=== PATIENT | female | born 1970 | race Caucasian/White ===

== ENCOUNTER 2024-11-04 12:07 | Observation (INO) | payer MEDICARE, MEDICAID, SELFPAY ==
[2024-11-04] VITALS (14 sets, daily range): BP systolic 122–162; BP diastolic 69–92; PULSE 61–84; RESP 15–19; TEMP 36.4–36.5; O2SAT 96–100
[2024-11-04 12:48] LABS: Bilirubin Negative (Negative); Blood Negative (Negative); Clarity Clear (Clear); Glucose Negative (Negative); Ketones Negative (Negative); Leukocyte Esterase Negative (Negative); Nitrite Negative (Negative); Urobilinogen 0.2 mg/dL (Up to 0.2)
--- NOTE | 2024-11-04 12:52 | ED.GENADUL_ITS ---
Discharge Plan Disposition Patient Disposition: Admit to [facility] Discharge Details Chief Complaint: FlankPain Clinical Impression: Hypomagnesemia Primary Care Provider: Jenny Winston ED Provider: Ann Marie Marie Home Meds and New Rx's Prescriptions: No Action Repatha SureClick 140 mg/mL pen injector 140 mg subcut Q2W Ubrelvy 100 mg tablet 100 mg PO ONCE PRN Rx Instructions: take 1 tab q2hr x2 in 24 hr as needed for migraines baclofen 10 mg granules in packet 10 mg PO TID escitalopram oxalate [Lexapro] 20 mg tablet 20 mg PO DAILY gabapentin 300 mg tablet extended release 24 hr 600 mg PO BID dexlansoprazole 60 mg capsule,biphase delayed releas 60 mg PO DAILY irbesartan 300 mg tablet 300 mg PO DAILY epinephrine [Auvi-Q] 0.3 mg/0.3 mL auto-injector 0.3 ml subcut Q5-15M PRN Rx Instructions: do not exceed 2 doses per episode furosemide 40 mg tablet 40 mg PO DAILY Trulance 3 mg tablet 3 mg PO DAILY chlorthalidone 25 mg tablet 25 mg PO DAILY hydroxychloroquine 200 mg tablet 200 mg PO DAILY potassium 20 mg tablet,chewable 20 mg PO DAILY levothyroxine [Euthyrox] 112 mcg tablet 112 mcg PO DAILY aspirin [Adult Aspirin Regimen] 81 mg tablet,delayed release (DR/EC) 81 mg PO DAILY HPI General Date/Time Provider Initiated Documentation: 11/04/24 12:15 . HPI Narrative: Francesca is a 54-year-old female who presents to the emergency department today for evaluation of left flank pain, urinary incontinence/frequency, and suprapubic/left-sided abdominal fullness x 4 days. Since May 2024, she has had recurrent UTIs and mobility difficulties. She experienced fecal incontinence and dribbling of her urine on Thursday, attributed to her back condition (says that she has had similar episodes with UTIs in the past). On Thursday, she had dehydration symptoms, dry lips, and pressure during urination, suspecting a bladder or kidney infection. She reports internal heat sensation but no fever, dizziness, congestion, sore throat, cough, nausea, or vomiting. She has bladder discomfort, a history of abdominal surgeries (C- sections, cholecystectomy, hysterectomy), but retains her appendix. She has regular bowel movements, no abnormal vaginal bleeding, and feels dehydrated despite adequate intake, with frequent nocturnal urination. No new genital numbness. History of UTIs associated with incontinence, hospitalized for 8 days at [facility] for UTI, treated with antibiotics for 6 days. Intermittent throbbing back pain, known kidney stone since 2015, not passed. No cardiac, pulmonary issues, or diabetes. Scheduled for caudal injection on Thursday, attended physical therapy this morning. History of 2 major back surgeries in 1999. 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 Related Data Home Medications ?Medication ?Instructions ?Recorded ?Confirmed aspirin 81 mg tablet,delayed 81 mg PO DAILY 11/04/24 11/04/24 release (Adult Aspirin Regimen) baclofen 10 mg oral granules in 10 mg PO TID 11/04/24 11/04/24 packet chlorthalidone 25 mg tablet 25 mg PO DAILY 11/04/24 11/04/24 dexlansoprazole 60 mg 60 mg PO DAILY 11/04/24 11/04/24 capsule,biphase delayed release epinephrine 0.3 mg/0.3 mL 0.3 ml subcut Q5-15M PRN 11/04/24 11/04/24 injection, auto-injector (Auvi-Q) escitalopram oxalate 20 mg tablet 20 mg PO DAILY 11/04/24 11/04/24 (Lexapro) evolocumab 140 mg/mL subcutaneous 140 mg subcut Q2W 11/04/24 11/04/24 pen injector (Repatha SureClick) furosemide 40 mg tablet 40 mg PO DAILY 11/04/24 11/04/24 gabapentin 300 mg tablet,extended 600 mg PO BID 11/04/24 11/04/24 release 24 hr hydroxychloroquine 200 mg tablet 200 mg PO DAILY 11/04/24 11/04/24 irbesartan 300 mg tablet 300 mg PO DAILY 11/04/24 11/04/24 levothyroxine 112 mcg tablet 112 mcg PO DAILY 11/04/24 11/04/24 (Euthyrox) plecanatide 3 mg tablet (Trulance) 3 mg PO DAILY 11/04/24 11/04/24 potassium 20 mg chewable tablet 20 mg PO DAILY 11/04/24 11/04/24 ubrogepant 100 mg tablet (Ubrelvy) 100 mg PO ONCE PRN 11/04/24 11/04/24 Allergies Allergy/AdvReac Type Severity Reaction Status Date / Time nitrofurantoin Allergy Severe Anaphylaxis Verified 11/04/24 12:23 Tetracyclines Allergy Severe Anaphylaxis Verified 11/04/24 12:23 amoxicillin Allergy Mild Hives Verified 11/04/24 12:23 atorvastatin Allergy Mild rash Verified 11/04/24 12:23 azithromycin Allergy Mild hives Verified 11/04/24 12:23 morphine Allergy Mild Hives Verified 11/04/24 12:23 sulfamethoxazole (From Allergy Mild Hives Verified 11/04/24 12:23 Bactrim) trimethoprim (From Bactrim) Allergy Mild Hives Verified 11/04/24 12:23 General Stated Complaint: FlankPain LINA: 3 Exam Narrative Exam Narrative: General Appearance: Normal. Patient is alert and oriented, no acute distress. Easily conversational Vital signs: Within normal limits. No tachycardia, tachypnea, hypoxia, or fever noted. HEENT: Mucous membranes Cardiovascular: Normal heart sounds, regular rate and rhythm. Gastrointestinal: Abdomen soft, nondistended, nontender to palpation with normoactive bowel sounds. No CVA tenderness. Skin: Warm and dry, no rash. Psychiatric: Normal. Course Vital Signs Vital signs: Vital Signs Temperature 36.5 C 11/04/24 12:11 Pulse 84 11/04/24 12:11 Respiratory Rate 16 11/04/24 12:11 Blood Pressure 140/90 11/04/24 12:11 Pulse Oximetry 98 11/04/24 12:11 Temperature 36.5 C 11/04/24 12:13 Pulse 84 11/04/24 12:13 Respiratory Rate 16 11/04/24 12:13 Blood Pressure 140/90 11/04/24 12:13 Pulse Oximetry 98 11/04/24 12:13 Oxygen Delivery Method Room Air 11/04/24 12:13 Oxygen Flow Rate 0 11/04/24 12:13 Pain Level 3 11/04/24 12:41 Lab/Test Results Lab/Test Results: Laboratory Tests Range/Units 11/04/24 12:35 Urine Color (Yellow) Yellow Urine Clarity (Clear) Clear Urine pH (5-8) 6.0 Ur Specific Joice (1.005-1.025) 1.010 Urine Protein (Neg-Trace) mg/dL Negative Urine Ketones (Negative) mg/dL Negative Urine Blood (Negative) Negative Urine Nitrite (Negative) Negative Urine Bilirubin (Negative) Negative Urine Urobilinogen (Up to 0.2) mg/dL 0.2 Ur Leukocyte Esterase (Negative) Negative Urine Glucose (Negative) mg/dL Negative Medical Decision Making Initial Assessment: Francesca is a 54-year-old female presenting with flank pain, increased urinary frequency, bladder pressure, and episodes of fecal incontinence. She has a history of major back surgeries, UTIs, and hypertension managed with medication. Differential Diagnosis: UTI, renal calculus, pyelonephritis, dehydration, electrolyte imbalance. No recent trauma or other neurological deficits to suggest spinal etiology of symptoms. ED Course: - Blood work ordered - Abdominal imaging ordered - Urinalysis ordered - Urine sample collected I independently interpreted the following tests: Severe hypomagnesemia noted, 1.1. CBC, CMP, lipase reassuring. Only mild hypokalemia noted, potassium 3.3. UA not consistent with UTI. CT abdomen/pelvis performed, no acute abnormality noted, though 2 nonobstructive calculi noted in the left kidney, and none in the ureter. No hydronephrosis or hydroureter. L-spine reconstruction performed to rule out changes in spine that may be contributory, no obvious acute abnormalities noted. Overall abdominal workup reassuring, hypomagnesemia likely contributory to muscle weakness. Francesca does note that she has a history of hypomagnesemia that was treated at [facility], says this was on unknown etiology. She does report that she has been feeling foggy headed recently and having frequent muscle spasms as well. Clinical Impression: Severe hypomagnesemia; patient to be admitted for observation/cardiac monitoring/replenishment. Discussed case with Dr. Talavera, hospitalist, who is agreeable with plan of care. Patient is agreeable with plan to admit. Disposition: - Admit MDM Components Evaluation: - Number of Differential Diagnoses or Management Options: Possible renal calculus, UTI - Amount and Complexity of Data Reviewed: Blood work, abdominal imaging, urinalysis, physical examination - Risk of Complication and Morbidity or Mortality: Potential complications from untreated UTI and renal calculus, dehydration Patient consented to the use of ANA Imaging Data Radiologic Study: Radiologist's impression: Exam(s) CT ABDOMEN PELVIS W EXAM: CT ABDOMEN PELVIS W CLINICAL HISTORY: lower abd fullness, urinary freq. TECHNIQUE: Imaging Protocol: Axial computed tomography images with coronal and sagittal reformatted images were created and reviewed CONTRAST MATERIAL: Intravenous: Omnipaque-350 100cc Oral: None COMPARISON: No exams were available for comparison FINDINGS: VISUALIZED LUNG BASES: No nodules nor pleural effusions evident. Bilateral prepectoral saline breast implants are noted. ABDOMEN: There is no ascites. LIVER: Liver is slightly prominent and hypodense implying steatosis. There no discrete focal hepatic lesions. No dilated intrahepatic ducts. GALLBLADDER/BILIARY: The gallbladder is surgically absent. CBD is not dilated. PANCREAS: No evidence of pancreatic mass nor dilatation of the pancreatic duct. SPLEEN: Spleen is not enlarged. No obvious intrasplenic lesions. Splenic and portal veins are patent. ADRENALS: There are no significant adrenal masses. KIDNEYS:Right kidney unremarkable. There is a 6 mm calculus in the superior pole the left kidney and a smaller 3 millimeter calculus in the inferior pole calyx of the left kidney. No hydronephrosis nor hydroureter. There are no cy sts . No solid renal masses.. ABDOMINAL AORTA: Abdominal aorta is not enlarged. LYMPH NODES:There is no retroperitoneal nor paraaortic adenopathy. ABDOMINAL WALL: No evidence of significant anterior abdominal wall nor inguinal hernia. GI: There is no evidence of bowel obstruction, free air, nor abscess. PELVIS: GI: No evidence of appendicitis.No significant sigmoid diverticular disease. LYMPH NODES: There is no intrapelvic nor inguinal adenopathy. REPRODUCTIVE: Uterus is surgically absent. There are no abnormal adnexal masses and no free fluid in the pelvis. URINARY BLADDER: No calculi nor obvious masses evident OSSEOUS: No fractures and no significant osseous lesions. There is evidence of previous disc level surgery at L4-5 level. No listhesis. No significant osseou s lesions. IMPRESSION: 1. There are 2 nonobstructive calculi in left kidney, 1 in the upper pole and the other in the lower pole. There is no hydronephrosis nor hydroureter. No radiopaque calculi seen in the opposite-right kidney. No calculi seen in the urinary bladder lumen. 2. Hepatic steatosis. No discrete focal hepatic lesions. 3. Gallbladder surgically absent. The biliary tree is not dilated. 4. Previous hysterectomy. No abnormal adnexal masses nor free fluid. Quality:SDOH Health Related Social Needs: No Data to Display [facility] All Active Problems (Updated 05/30/25 @ 16:45 by Ann Marie Beaulieu) Hypomagnesemia (Acute) Social History Smoking/Tobacco Use Status: Never Smoking risk assessment performed?: Yes Alcohol Intake: never Do you feel safe at home: Yes Do you feel safe in your relationship?: Yes
[2024-11-04 13:14] LABS: Abs Immature Grans 0.03 10^3/uL (0.0-0.06); Absolute Basophil Count 0.05 10^3/uL (0.0-0.2); Absolute Eosinophil Count 0.22 10^3/uL (0.0-0.7); Absolute Lymphocyte Count 3.81 10^3/uL (1.2-3.4); Absolute Neutrophil Count 3.33 10^3/uL (1.2-6.7); Basophils % 0.6 %; Eosinophils % 2.7 %; HGB 12.3 g/dL (11.2-15.7); Immature Grans % 0.4 %; Lymphocytes % 46.2 %; MCH 28.9 pg (27.0-33.0); MCHC 34.2 % (32.0-36.0); MCV 85 fL (80-95); MPV 10.1 fL (8.0-11.0); Monocytes % 9.7 %; Neutrophils % 40.4 %; Platelet Count 216 10^3/uL (130-400); RBC 4.26 10^6/uL (3.93-5.22); RDW-SD 39.8 fL; WBC 8.24 10^3/uL (4.4-10.8)
[2024-11-04 13:28] LABS: Lipase 58 U/L (<78); Magnesium 1.1 mg/dL (1.8-2.4)
[2024-11-04 13:32] LABS: ALT 45 U/L (14-59); AST 26 U/L (15-37); Albumin 3.6 g/dL (3.4-5.0); Alkaline Phosphatase 89 U/L (46-116); Anion Gap 11.3 mmol/L (3-11); BUN 19 mg/dL (7-18); Bilirubin, Total 0.3 mg/dL (0.2-1.0); CO2 27.7 mmol/L (21.0-32.0); Calcium 9.2 mg/dL (8.5-10.1); Chloride 101 mmol/L (98-107); Estimated GFR 67.78 (mL/min/1.73m2); Glucose 123 mg/dL (74-106); Potassium 3.3 mmol/L (3.5-5.1); Sodium 140 mmol/L (136-145); Total Protein 7.2 g/dL (6.4-8.2)
[2024-11-04] MEDS: Normal Saline - Diluent 50 ML VIAL IJ (14:14)
[2024-11-04] MEDS: Omnipaque 350 MG/ML 100 ML BTL IJ (14:15)
--- NOTE | 2024-11-04 14:18 | DI.CT_ITS ---
Exam(s) CT ABDOMEN PELVIS W EXAM: CT ABDOMEN PELVIS W CLINICAL HISTORY: lower abd fullness, urinary freq. TECHNIQUE: Imaging Protocol: Axial computed tomography images with coronal and sagittal reformatted images were created and reviewed CONTRAST MATERIAL: Intravenous: Omnipaque-350 100cc Oral: None COMPARISON: No exams were available for comparison FINDINGS: VISUALIZED LUNG BASES: No nodules nor pleural effusions evident. Bilateral prepectoral saline breast implants are noted. ABDOMEN: There is no ascites. LIVER: Liver is slightly prominent and hypodense implying steatosis. There no discrete focal hepatic lesions. No dilated intrahepatic ducts. GALLBLADDER/BILIARY: The gallbladder is surgically absent. CBD is not dilated. PANCREAS: No evidence of pancreatic mass nor dilatation of the pancreatic duct. SPLEEN: Spleen is not enlarged. No obvious intrasplenic lesions. Splenic and portal veins are paten t. ADRENALS: There are no significant adrenal masses. KIDNEYS:Right kidney unremarkable. There is a 6 mm calculus in the superior pole the left kidney and a smaller 3 millimeter calculus in the inferior pole calyx of the left kidney. No hydronephrosis no r hydroureter. There are no cysts . No solid renal masses.. ABDOMINAL AORTA: Abdominal aorta is not enlarged. LYMPH NODES:There is no retroperitoneal nor paraaortic adenopathy. ABDOMINAL WALL: No evidence of significant anterior abdominal wall nor inguinal hernia. GI: There is no evidence of bowel obstruction, free air, nor abscess. PELVIS: GI: No evidence of appendicitis.No significant sigmoid diverticular disease. LYMPH NODES: There is no intrapelvic nor inguinal adenopathy. REPRODUCTIVE: Uterus is surgically absent. There are no abnormal adnexal masses and no free fluid in the pelvis. URINARY BLADDER: No calculi nor obvious masses evident OSSEOUS: No fractures and no significant osseous lesions. There is evidence of previous disc level s urgery at L4-5 level. No listhesis. No significant osseous lesions. IMPRESSION: 1. There are 2 nonobstructive calculi in left kidney, 1 in the upper pole and the other in the lower pole. There is no hydronephrosis nor hydroureter. No radiopaque calculi seen in the opposite-right kidney. No calculi seen in the urinary bladder lumen. 2. Hepatic steatosis. No discrete focal hepatic lesions. 3. Gallbladder surgically absent. The biliary tree is not dilated. 4. Previous hysterectomy. No abnormal adnexal masses nor free fluid. Report called by myself to ER provider 11/04/2024 at 2:30 p.m. RADIATION DOSE DELIVERED: 613.03mGy.cm Total DLP DATA REPOSITORY: All CT scans at this facility are submitted to the National Radiology Data Registry (NRDR) Dose Index Registry (DIR) with the [employer] ([employer]). RADIATION OPTIMIZATION: All CT scans at this facility use at least one of these dose optimization te chniques: automated exposure control; mA and/or kV adjustment per patient size (includes targeted exa ms where dose is matched to clinical indication); or iterative reconstruction.
[2024-11-04] MEDS: MAGNESIUM SULFATE 4 GM/100 ML BAG IV_INF ×2 (14:36→18:44)
[2024-11-04 14:57] LABS: Magnesium 1.3 mg/dL (1.8-2.4)
--- NOTE | 2024-11-04 14:58 | DI.CT_ITS ---
Exam(s) CT LUMBAR SPINE RECONS EXAM: CT LUMBAR SPINE RECONS CLINICAL HISTORY: incontinence. TECHNIQUE: Imaging Protocol: Axial computed tomography images with coronal and sagittal reformatted images were created and reviewed COMPARISON: CT CT ABDOMEN PELVIS W from 11/04/2024 FINDINGS: Bones: There are no fractures, listhesis, nor pars defects. There are no lytic osseous lesions evide nt. There is evidence of previous surgery at L4-5 level. There is intervertebral disc space plugs at thi s level and posterior partial laminectomies. See below. INDIVIDUAL LEVELS: T12-L1:No disc herniation nor canal stenosis. Facet joints unremarkable. No foraminal stenosis. L1-2: No disc herniation nor canal stenosis. Facet joints unremarkable. No foraminal stenosis. L2-3: No disc herniation nor canal stenosis. Facet joints unremarkable. No Foraminal stenosis L3-4: No disc herniation nor canal stenosis. Facet joints unremarkable. No foraminal stenosis. L4-5: There is advanced disc space narrowing and there are 2 parallel intervertebral disc space murtaza ce is which are AP orientated and with no evidence of abnormal retropulsion into the spinal canal. T here is nevertheless significant disc space narrowing at this level. Posteriorly there are partial l aminectomies. There is some annular bulging but no true central canal stenosis evident at this level . There does appear to be some bilateral foraminal stenosis, more prominent on the left side. There are moderate degenerative changes in the facet joints. L5-S1: Relatively preserved disc height. No disc herniation or central canal stenosis. Mild bilate ral foraminal stenosis. Mild degenerative changes in the facet joints. The visualized sacroiliac joints and sacrum appear unremarkable. PARASPINAL SOFT TISSUES: Visualized paraspinal tissues appear unremarkable. IMPRESSION: 1. Postoperative changes at L4-5 level as described above. There is no central canal stenosis at thi s level but there does appear to be some bilateral foraminal stenosis, more prominent on the left jarett e. 2. There is mild bilateral foraminal stenosis at the L5-S1 level. 3. No fractures nor listhesis. RADIATION DOSE DELIVERED: Total DLP DATA REPOSITORY: All CT scans at this facility are submitted to the National Radiology Data Registry (NRDR) Dose Index Registry (DIR) with the [employer] (ACR). RADIATION OPTIMIZATION: All CT scans at this facility use at least one of these dose optimization te chniques: automated exposure control; mA and/or kV adjustment per patient size (includes targeted exa ms where dose is matched to clinical indication); or iterative reconstruction.
--- NOTE | 2024-11-04 15:45 | RT.EKG_ITS ---
APPROVED REPORT Exam: Resting ECG Reason for Exam: [email or web address] Patient Location: E HR:62 bpm ECG Measurements Heart Rate 62 AXIS IA 161 P 34 QRSd 94 QRS 19 QT 442 T 30 QTc 447 Conclusion Sinus rhythm...normal P axis, V-rate 60- 99
--- NOTE | 2024-11-04 18:15 | W.PM.HP.N ---
Date of service: 11/04/24 Time of Service: 18:15 Assessment and Plan Assessment and plan (1) Hypomagnesemia: Status: Acute Assessment and plan: Given severe hypomagnesemia with increased weakness and multiple QTc prolonging agents with QTc currently long on the monitor, reasonable to admit to observation for cardiac monitoring while we replace the Mg. Given 4g and magnesium up to 1.3 [address] this. Will give another 4g and check in AM. Continue oral replacement. PPI likely contributing, but she will get symtpoms if we just stop this. (2) Chronic low back pain: Status: Chronic Assessment and plan: Complex history of low back pain with mulitple surgeries, seeing pain management. History of intermittent incontinence is concerning, but CT today reassuring, and this has come/gone in the past. This is not acute cauda equina COntinue chornic baclofen, lower dose of gabapentin she is taking. Can use opioids or ketoralac if severe. 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 Low mag contributing. Adding amiloride. (5) Hypertension: Status: Chronic Assessment and plan: BP above goal but she is in pain. K+ sparing diuretic might help this, try cuttling chlorthalidone and starting amilioride. (6) GERD (gastroesophageal reflux disease): Status: Chronic Assessment and plan: On chornic high dose PPI, continue. (7) Mixed connective tissue disease: Assessment and plan: on hydroxychloroquine, continue (8) DVT prophylaxis: Status: Acute Assessment and plan: enoxaparin History of Present Illness History of Present Illness Chief Complaint: weakness, flank pain Narrative: 54 yo F with history of ocular CVA with left vision loss, mixed connective tissue disease, IBS, chronic low back pain s/p L4-5 lamenectomy and fusion and sacroiliitis, HTN, BMI 38, nephrolithiasis, GERD on PPI, migraines, hypothyroidism, and chronic hypomagesemia who presented to the ED today with general malaise and four days of worsening of pain in her left flank on top of her chronic back pain. She had noticed more urinary dribbling, has had history of incontinence related to her back that has come and gone . 4 days prior to admission, she also had stool incontinence, but has has normal bowel control since then. Back pain is throbbing, left lower to mid back. She has a history of UTIs complicated by stones as above. In addition to her pain she feels generally weak when she tries to walk, but no focal weakness. In the ED she had CT LS spine that did show left foramenal stenosis on L4/5 and bilateral L5-S1 but no central canal stenosis. CT A/P showed non-obstructing stones on left but no other significant pathology and urine was bland. Her labs were significant for magnesium of 1.1. Her QTc on monitor is alarming at 480s. ED clinician offered admission for cardiac monitoring given severe hypomagnesemia and weakness. She has had chronic low mag in the past. Takes magnesium 500mg BID from [employer]. She hasn't changed medications recently, other than cutting her gabapentin to 1 tablet per day because it doesn't work great and makes her legs swelling worse. Review of Systems All systems reviewed & are unremarkable except as noted in HPI and below Constitutional Constitutional: Denies chills, Denies fever(s), Denies headache(s) and Reports weight gain (25 lbs in past 2 months, gabapentin?) Eyes Eyes: Reports loss of vision (left eye, chronic, no acute change) ENT Ears, Nose, Mouth, and Throat: Denies headache(s) Integumentary/Breasts Skin/Breast: Reports alopecia (diffuse on head) Neurologic Neurologic: Denies headache(s) and Reports loss of vision (left eye, chronic, no acute change) PFSH All Active Problems (Updated 11/04/24 @ 18:53 by Dinesh Talavera) DVT prophylaxis (Acute) GERD (gastroesophageal reflux disease) (Chronic) Hyperlipemia (Acute) 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 (Acute) Hypokalemia (Acute) Hypertension (Chronic) Chronic low back pain (Chronic) Hypomagnesemia (Acute) Medical History Depression Nephrolithiasis Migraine IBS (irritable bowel syndrome) Mixed connective tissue disease Obesity, Class II, BMI 35-39.9 Surgical History S/P hysterectomy S/P lumbar laminectomy S/P lumbar fusion Social History Smoking/Tobacco Use Status: Never Smoking risk assessment performed?: Yes Alcohol Intake: never Drug use: Never Housing: house Do you feel safe at home: Yes Do you feel safe in your relationship?: Yes Additional Social history: Lives with sister in [facility]. 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 Meds Allergies and Home Medications Allergies Allergy/AdvReac Type Severity Reaction Status Date / Time nitrofurantoin Allergy Severe Anaphylaxis Verified 11/04/24 12:23 Tetracyclines Allergy Severe Anaphylaxis Verified 11/04/24 12:23 amoxicillin Allergy Mild Hives Verified 11/04/24 12:23 atorvastatin Allergy Mild rash Verified 11/04/24 12:23 azithromycin Allergy Mild hives Verified 11/04/24 12:23 morphine Allergy Mild Hives Verified 11/04/24 12:23 sulfamethoxazole (From Allergy Mild Hives Verified 11/04/24 12:23 Bactrim) trimethoprim (From Bactrim) Allergy Mild Hives Verified 11/04/24 12:23 Home Medications ?Medication ?Instructions ?Recorded ?Confirmed ?Type aspirin 81 mg tablet,delayed 81 mg PO DAILY 11/04/24 11/04/24 History release (Adult Aspirin Regimen) baclofen 10 mg oral granules in 10 mg PO TID 11/04/24 11/04/24 History packet chlorthalidone 25 mg tablet 25 mg PO DAILY 11/04/24 11/04/24 History dexlansoprazole 60 mg 60 mg PO DAILY 11/04/24 11/04/24 History capsule,biphase delayed release epinephrine 0.3 mg/0.3 mL 0.3 ml subcut Q5-15M PRN 11/04/24 11/04/24 History injection, auto-injector (Auvi-Q) escitalopram oxalate 20 mg tablet 20 mg PO DAILY 11/04/24 11/04/24 History (Lexapro) evolocumab 140 mg/mL subcutaneous 140 mg subcut Q2W 11/04/24 11/04/24 History pen injector (Repatha SureClick) furosemide 40 mg tablet 40 mg PO DAILY 11/04/24 11/04/24 History gabapentin 300 mg tablet,extended 600 mg PO BID 11/04/24 11/04/24 History release 24 hr hydroxychloroquine 200 mg tablet 200 mg PO DAILY 11/04/24 11/04/24 History irbesartan 300 mg tablet 300 mg PO DAILY 11/04/24 11/04/24 History levothyroxine 112 mcg tablet 112 mcg PO DAILY 11/04/24 11/04/24 History (Euthyrox) plecanatide 3 mg tablet (Trulance) 3 mg PO DAILY 11/04/24 11/04/24 History potassium 20 mg chewable tablet 20 mg PO DAILY 11/04/24 11/04/24 History ubrogepant 100 mg tablet (Ubrelvy) 100 mg PO ONCE PRN 11/04/24 11/04/24 History Exam Narrative Exam Narrative: GEN: Alert and oriented x 4, pleasant and cooperative, gives linear history. No acute distress at rest lying in bed. HEENT: Head atraumatic. Conjunctiva clear, no icterus. PEERL, EOMI. no rhinorrhea. MMM, OP benign. Neck is supple with no masses or lymphadenopathy, trachea midline LUNGS: CTAB with normal effort CV: RRR with no murmurs, gallops, or rubs. ABD: active bowel sounds, soft, nontender and nondistended. No masses. EXT: no cyanosis, clubbing. trace LE edema. legs not tender MSK: No joint redness or swelling NEURO: CN 2-12 grossly intact. Normal movement of 4 extremities. DTRs 2-3+ francoise patella. Sensation intact to light touch francoise including saddle. Normal speech and coordination. No tremor SKIN: No rashes or open wounds. No patches of hair loss PSYCH: normal mood and affect. normal thought process Results Imaging CT scan - pelvis: report reviewed EKG: report reviewed and image reviewed Imaging Studies: CT A/P: . There are 2 nonobstructive calculi in left kidney, 1 in the upper pole and the other in the lower pole. There is no hydronephrosis nor hydroureter. No radiopaque calculi seen in the opposite-right kidney. No calculi seen in the urinary bladder lumen. 2. Hepatic steatosis. No discrete focal hepatic lesions. 3. Gallbladder surgically absent. The biliary tree is not dilated. 4. Previous hysterectomy. No abnormal adnexal masses nor free fluid. LS CT: Postoperative changes at L4-5 level as described above. There is no central canal stenosis at this level but there does appear to be some bilateral foraminal stenosis, more prominent on the left side. 2. There is mild bilateral foraminal stenosis at the L5-S1 level. 3. No fractures nor listhesis. Labs 11/04/24 13:08 11/04/24 13:08 Labs: Laboratory Results - last 24 hr 11/04/24 11/04/24 11/04/24 12:35 13:08 14:31 WBC 8.24 RBC 4.26 Hgb 12.3 Hct 36.0 MCV 85 MCH 28.9 MCHC 34.2 RDW 13.0 Plt Count 216 MPV 10.1 Immature Gran % 0.4 Neutrophils % 40.4 Lymphocytes % 46.2 Monocytes % 9.7 Eosinophils % 2.7 Basophils % 0.6 Nucleated RBC % 0.0 Absolute Neutrophils 3.33 Absolute Lymphocytes 3.81 H Absolute Monocytes 0.80 Absolute Eosinophils 0.22 Absolute Basophils 0.05 Sodium 140 Potassium 3.3 L Chloride 101 Carbon Dioxide 27.7 Anion Gap 11.3 H BUN 19 H Creatinine 1.0 Est GFR (CKD-EPI 2020) 67.78 Glucose 123 H Calcium 9.2 Magnesium 1.1 L 1.3 L Total Bilirubin 0.3 AST 26 ALT 45 Alkaline Phosphatase 89 Total Protein 7.2 Albumin 3.6 Lipase 58 Urine Color Yellow Urine Clarity Clear Urine pH 6.0 Ur Specific [place] 1.010 Urine Protein Negative Urine Ketones Negative Urine Blood Negative Urine Nitrite Negative Urine Bilirubin Negative Urine Urobilinogen 0.2 Ur Leukocyte Esterase Negative Urine Glucose Negative Last Vital Signs Temp 36.5 C 11/04/24 12:13 Pulse 63 11/04/24 17:31 Resp 19 11/04/24 17:31 BP 152/72 H 11/04/24 17:31 Pulse Ox 98 11/04/24 17:31 Time Spent Time spent with Patient: >75 minutes Time was spent: preparing to see the patient(eg.review tests), obtaining and/or reviewing separately otained hiistory, ordering medications,tests, procedures, referring, communicating with other health school child care attendant, indepentently interpreting results, counseling the patient and care coordination
--- NOTE | 2024-11-04 18:42 | W.PC.ACHO ---
Registration Status: Primary Language: Preferred Language: ED Information & Data Chief Complaint FlankPain 11/04/24 12:56 Triage Note reoccurring uti's, s/s 11/04/24 12:11 started last week, frequency , urgency. Bilateral flank pain. pt has hx of kidney stones as well. Most Recent Vital Signs Temperature 36.5 C 11/04/24 18:27 Pulse 80 11/04/24 18:27 Pulse Rhythm Regular 11/04/24 18:27 Pulse 67 11/04/24 17:31 Respiratory Rate 18 11/04/24 18:27 Respiratory Effort Normal, Non-Labored 11/04/24 18:27 Respiratory Depth Normal 11/04/24 18:27 Respiratory Pattern Normal 11/04/24 18:27 Blood Pressure 137/85 11/04/24 18:27 Blood Pressure Mean 98 11/04/24 17:31 Pulse Oximetry 98 11/04/24 18:27 Oxygen Delivery Method Room Air 11/04/24 18:27 Oxygen Flow Rate 0 11/04/24 18:27 Pain Level 3 11/04/24 12:41 Allergies nitrofurantoin Allergy (Severe, Verified 11/04/24 12:23) Anaphylaxis Tetracyclines Allergy (Severe, Verified 11/04/24 12:23) Anaphylaxis amoxicillin Allergy (Mild, Verified 11/04/24 12:23) Hives atorvastatin Allergy (Mild, Verified 11/04/24 12:23) rash azithromycin Allergy (Mild, Verified 11/04/24 12:23) hives morphine Allergy (Mild, Verified 11/04/24 12:23) Hives sulfamethoxazole (From Bactrim) Allergy (Mild, Verified 11/04/24 12:23) Hives trimethoprim (From Bactrim) Allergy (Mild, Verified 11/04/24 12:23) Hives Active Medications Generic Name Dose Route Start Last Admin Trade Name Freq PRN Reason Stop Dose Admin Iohexol 100 ml 11/04/24 14:15 11/04/24 14:15 Omnipaque 350 Mg/Ml 100 Ml Btl IJ 12/04/24 23:59 100 ml DIRECTED MARV Administration Sodium Chloride 50 ml 11/04/24 14:15 11/04/24 14:14 Normal Saline - Diluent 50 Ml Vial IJ 50 ml .FOR DI USE MARV Administration IV IV Catheter Type [Left Saline Lock Antecubital] Diet Orders Category Date Time Status Regular/Normal [DIET] Nutrition 11/04/24 Dinner Active Diagnostics 11/04/24 11/04/24 11/04/24 Range/Units 14:31 13:08 12:35 WBC 8.24 (4.4-10.8) 10^3/uL RBC 4.26 (3.93-5.22) 10^6/uL Hgb 12.3 (11.2-15.7) g/dL Hct 36.0 (36.0-46.0) % MCV 85 (80-95) fL MCH 28.9 (27.0-33.0) pg MCHC 34.2 (32.0-36.0) % RDW 13.0 (11.7-14.6) % Plt Count 216 (130-400) 10^3/uL MPV 10.1 (8.0-11.0) fL Immature Gran % 0.4 % Neutrophils % 40.4 % Lymphocytes % 46.2 % Monocytes % 9.7 % Eosinophils % 2.7 % Basophils % 0.6 % Nucleated RBC % 0.0 (0.0-0.3) % Absolute Neutrophils 3.33 (1.2-6.7) 10^3/uL Absolute Lymphocytes 3.81 H (1.2-3.4) 10^3/uL Absolute Monocytes 0.80 (0.1-0.8) 10^3/uL Absolute Eosinophils 0.22 (0.0-0.7) 10^3/uL Absolute Basophils 0.05 (0.0-0.2) 10^3/uL Sodium 140 (136-145) mmol/L Potassium 3.3 L (3.5-5.1) mmol/L Chloride 101 (98-107) mmol/L Carbon Dioxide 27.7 (21.0-32.0) mmol/L Anion Gap 11.3 H (3-11) mmol/L BUN 19 H (7-18) mg/dL Creatinine 1.0 (0.55-1.02) mg/dL Est GFR (CKD-EPI 2020) 67.78 (mL/min/1.73m2) Glucose 123 H (74-106) mg/dL Calcium 9.2 (8.5-10.1) mg/dL Magnesium 1.3 L 1.1 L (1.8-2.4) mg/dL Total Bilirubin 0.3 (0.2-1.0) mg/dL AST 26 (15-37) U/L ALT 45 (14-59) U/L Alkaline Phosphatase 89 (46-116) U/L Total Protein 7.2 (6.4-8.2) g/dL Albumin 3.6 (3.4-5.0) g/dL Lipase 58 (<78) U/L Urine Color Yellow (Yellow) Urine Clarity Clear (Clear) Urine pH 6.0 (5-8) Ur Specific [place] 1.010 (1.005-1.025) Urine Protein Negative (Neg-Trace) mg/dL Urine Ketones Negative (Negative) mg/dL Urine Blood Negative (Negative) Urine Nitrite Negative (Negative) Urine Bilirubin Negative (Negative) Urine Urobilinogen 0.2 (Up to 0.2) mg/dL Ur Leukocyte Esterase Negative (Negative) Urine Glucose Negative (Negative) mg/dL Intake and Output - 24 Hour Total 11/04/24 12:07 thru 11/04/24 18:27 Weight 93.6 kg Falls Risk Assessment History of Falls No History 11/04/24 18:27 Contributing Factors Incontinence 11/04/24 18:27 Ambulatory Aids Independent 11/04/24 18:27 Tubes/Lines W/no contributing factors 11/04/24 18:27 Gait Evaluation W/no contributing factors 11/04/24 18:27 Cognition No cognitive impairment 11/04/24 18:27 Fall Total Score 23 11/04/24 18:27 Level of Risk Standard/Low Risk 11/04/24 18:27 v v v v v v v v v Sending and/or Receiving Nurses: Please use comment section below to note any information pertinent to the patient hand-off not included above. Information / Comments: Report received from: Report called at 18:03. Called back at 18:05. Report from GINA landers RN
[2024-11-04] MEDS: Potassium Chloride 20 MEQ TABCR 40 MEQ PO (18:44)
[2024-11-04] MEDS: Baclofen 10 MG TAB PO (20:04)
[2024-11-04] MEDS: Gabapentin 300 MG CAP PO (20:04)
[2024-11-04] MEDS: Magnesium Gluconate 500 MG TAB PO (20:04)
[2024-11-04] MEDS: Normal Saline Flush 10 ML SYR IVP (22:41)
[2024-11-05] MEDS: Levothyroxine 112 MCG TAB PO (04:59)
[2024-11-05 05:00] VITALS: BP 124/92; PULSE 96; RESP 20; TEMP 36.3; O2SAT 98
[2024-11-05] MEDS: Acetaminophen 500 MG TAB 1000 MG PO ×2 (05:26→16:37)
[2024-11-05 07:11] LABS: Anion Gap 5.7 mmol/L (3-11); BUN 13 mg/dL (7-18); CO2 29.3 mmol/L (21.0-32.0); CREATININE 0.7 mg/dL (0.55-1.02); Calcium 8.9 mg/dL (8.5-10.1); Chloride 102 mmol/L (98-107); Ferritin 260 ng/mL (8-252); Glucose 107 mg/dL (74-106); Magnesium 2.1 mg/dL (1.8-2.4); Potassium 3.9 mmol/L (3.5-5.1); Sodium 137 mmol/L (136-145); TSH (W/Ref FT4) 0.83 uIU/mL (0.36-3.74)
[2024-11-05 07:27] VITALS: BP 120/72; PULSE 81; RESP 15; TEMP 36.6; O2SAT 96
[2024-11-05] MEDS: Magnesium Gluconate 500 MG TAB PO ×2 (07:31→20:07)
[2024-11-05] MEDS: Normal Saline Flush 10 ML SYR IVP ×2 (07:31→20:08)
[2024-11-05] MEDS: Baclofen 10 MG TAB PO ×3 (07:31→20:08)
[2024-11-05] MEDS: Pantoprazole 40 MG TABCR PO (07:31)
[2024-11-05] MEDS: Chlorthalidone 25 MG TAB PO (07:34)
[2024-11-05] MEDS: Hydroxychloroquine 200 MG TAB PO (07:34)
[2024-11-05] MEDS: Aspirin E.C. 81 MG TABEC PO (07:34)
[2024-11-05] MEDS: Escitalopram 20 MG TAB PO (07:34)
[2024-11-05] MEDS: aMILoride HCL 5 MG TAB PO (08:23)
--- NOTE | 2024-11-05 09:16 | INITIAL_ITS ---
Date of service: 11/05/24 Time of Service: 15:50 Care Management Initial Assmt Initial Assessment Reason for Hospitalization: Weakness, hypomagnesemia, prolonged QTc Functional Status/Living Situation Patient Presentation: Francesca was lying in bed, when CM met with her. She drove herself to the ED yesterday for an evaluation of left flank pain, urinary incontinence/frequency, and suprapubic/left-sided abdominal fullness x 4 days. rFancesca is a pleasant women who lives in a [place] in [place]. She states that she is originally from [place], and moved here with her family some time ago. Per Francesca, she had PT services in June; she currently sees outpt PT at [facility] 3x weekly, as her only community connect. Francesca states that she feels well supported in her home and her family supports her to get her needs met. CM will continue to follow. Town of Residence: [place] Resides with: Spouse (Boyfriend) and Other (States there are mnay family members living in the home. ) Natural Supports: Family Employment Status: Disabled (States she is disabled ) Activities/Hobbies/SocialSupport: [employer] Medications Medication Management: No Issues/Barriers identified Physical Functioning/Mobility Assistive Device: PT consulted Advance Directives Advance Directives: Do you have an Advance Directive: AD On File at [facility]: N 03/09/13 10:54 Date Asked 05/11/12 03/09/13 10:54 AD Date Reviewed COLST On File at [facility] COLST Date Scanned Code Status Resuscitation Status Full Code Portal Pt does not currently have a portal and education provided: Yes Insurance Coverage/Financial Issues Insurance: Medicaid? Care Team Visit Care Team Role Provider Type Moncho Roberto MD MD [facility] STAFF PHYSICIAN Jenny Winston MD Primary Care Provider NON-[facility] STAFF PHYSICIAN Ann Marie Beaul[place] Emergency Provider NURSE PRACTITIONER Dinesh Talavera Admit Provider [facility] STAFF PHYSICIAN Attending Provider Discharge Potential Discharge Needs: PT Evaluation and PCP F/U Appt Anticipated Barriers to Discharge: None Identified Patient/Family Education Needs: Review discharge instructions, discuss Ask Me Three Transportation: Private vehicle (Drove self ) Plan: Anticipate Francesca will be discharged home, once medically ready with a resumption of outpatient PT. She will follow up with her community providers and continue per her discharge plan of care. She will transport herself home via private vehicle. 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 (Acute) Hypokalemia (Acute) Hypertension (Chronic) Chronic low back pain (Chronic) Hypomagnesemia (Acute) Medical History Depression Nephrolithiasis Migraine IBS (irritable bowel syndrome) Mixed connective tissue disease Obesity, Class II, BMI 35-39.9 Surgical History S/P hysterectomy S/P lumbar laminectomy S/P lumbar fusion Social History Smoking/Tobacco Use Status: Never Smoking risk assessment performed?: Yes Alcohol Intake: never Drug use: Never Housing: house Do you feel safe at home: Yes Do you feel safe in your relationship?: Yes Additional Social history: Lives with sister in [facility]. 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 Readmission Within the Past 30 Days Yes or No: No
[2024-11-05 10:52] VITALS: BP 123/80; PULSE 71; RESP 16; TEMP 36.4; O2SAT 98
[2024-11-05] MEDS: Irbesartan 75 MG TAB 300 MG PO (10:55)
--- NOTE | 2024-11-05 15:23 | PGE_ITS ---
Date of Service Date of service: 11/05/24 Time of Service: 15:23 Assessment and Plan Assessment and plan (1) Hypomagnesemia: Status: Acute Assessment and plan: Given severe hypomagnesemia with increased weakness and multiple QTc prolonging agents with QTc currently long on the monitor, reasonable to admit to observation for cardiac monitoring while we replace the Mg. Given 4g and magnesium up to 1.3 3/[address] through this. Will give another 4g and check in AM. Continue oral replacement. PPI likely contributing, but she will get symtpoms if we just stop this. 11/05/24 mag improved, recheck in am (2) Chronic low back pain: Status: Chronic Assessment and plan: Complex history of low back pain with mulitple surgeries, seeing pain management. History of intermittent incontinence is concerning, but CT today reassuring, and this has come/gone in the past. This is not acute cauda equina COntinue chornic baclofen, lower dose of gabapentin she is taking. Can use opioids or ketoralac if severe. 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 Low mag contributing. Adding amiloride. (5) Hypertension: Status: Chronic Assessment and plan: BP above goal but she is in pain. K+ sparing diuretic might help this, try cuttling chlorthalidone and starting amilioride. (6) GERD (gastroesophageal reflux disease): Status: Chronic Assessment and plan: On chornic high dose PPI, continue. (7) Mixed connective tissue disease: Assessment and plan: on hydroxychloroquine, continue (8) DVT prophylaxis: Status: Acute Assessment and plan: enoxaparin (9) Calf pain: Status: Acute Assessment and plan: will check d-dimer and if positive order BLE usn. Don't see dvtp so will add lovenox Subjective Subjective Interval history since last seen: complains of continued RLE pain in her calf area Exam Narrative Exam Narrative: GEN: Alert and oriented x 4, pleasant and cooperative, gives linear history. No acute distress at rest lying in bed. HEENT: Head atraumatic. Conjunctiva clear, no icterus. PEERL, EOMI. no rhinorrhea. MMM, OP benign. Neck is supple with no masses or lymphadenopathy, trachea midline LUNGS: CTAB with normal effort CV: RRR with no murmurs, gallops, or rubs. ABD: active bowel sounds, soft, nontender and nondistended. No masses. EXT: no cyanosis, clubbing. trace LE edema. legs not tender MSK: No joint redness or swelling NEURO: CN 2-12 grossly intact. Normal movement of 4 extremities. DTRs 2-3+ francoise patella. Sensation intact to light touch francoise including saddle. Normal speech and coordination. No tremor SKIN: No rashes or open wounds. No patches of hair loss PSYCH: normal mood and affect. normal thought process Objective Last Vital Signs Temp 36.4 C L 11/05/24 10:52 Pulse 71 11/05/24 10:52 Resp 16 11/05/24 10:52 BP 123/80 11/05/24 10:52 Pulse Ox 98 11/05/24 10:52 Laboratory Results - last 24 hr 11/05/24 06:10 Sodium 137 Potassium 3.9 Chloride 102 Carbon Dioxide 29.3 Anion Gap 5.7 BUN 13 Creatinine 0.7 Est GFR (CKD-EPI 2020) 104.00 Glucose 107 H Calcium 8.9 Magnesium 2.1 Ferritin 260 H TSH 0.83 Time Spent with Patient Time Spent with Patient: 25-34 minutes Time was spent: preparing to see the patient(eg.review tests), obtaining and/or reviewing separately otained hiistory, ordering medications,tests, procedures, referring, communicating with other health neonatal intensive care unit nurse, indepentently interpreting results, counseling the patient and care coordination
[2024-11-05 19:57] VITALS: BP 114/72; PULSE 72; RESP 16; TEMP 36.1; O2SAT 98
[2024-11-05 20:07] LABS: D-Dimer 170 ng/mlFEU (<500)
[2024-11-05] MEDS: Gabapentin 300 MG CAP PO (20:08)
[2024-11-06] MEDS: Levothyroxine 112 MCG TAB PO (05:50)
[2024-11-06 06:35] LABS: Abs Immature Grans 0.04 10^3/uL (0.0-0.06); Absolute Basophil Count 0.05 10^3/uL (0.0-0.2); Absolute Eosinophil Count 0.34 10^3/uL (0.0-0.7); Absolute Monocyte Count 0.72 10^3/uL (0.1-0.8); Absolute Neutrophil Count 2.53 10^3/uL (1.2-6.7); Basophils % 0.6 %; Eosinophils % 4.3 %; HCT 38.6 % (36.0-46.0); HGB 13.1 g/dL (11.2-15.7); Immature Grans % 0.5 %; Lymphocytes % 53.3 %; MCH 28.8 pg (27.0-33.0); MCHC 33.9 % (32.0-36.0); MCV 85 fL (80-95); MPV 10.1 fL (8.0-11.0); Monocytes % 9.1 %; Neutrophils % 32.2 %; Platelet Count 221 10^3/uL (130-400); RBC 4.55 10^6/uL (3.93-5.22); RDW 12.9 % (11.7-14.6); RDW-SD 39.5 fL; WBC 7.88 10^3/uL (4.4-10.8)
[2024-11-06 07:11] LABS: ALT 53 U/L (14-59); AST 28 U/L (15-37); Albumin 3.7 g/dL (3.4-5.0); Alkaline Phosphatase 68 U/L (46-116); Anion Gap 10.9 mmol/L (3-11); BUN 17 mg/dL (7-18); Bilirubin, Total 0.4 mg/dL (0.2-1.0); CO2 28.1 mmol/L (21.0-32.0); CREATININE 0.9 mg/dL (0.55-1.02); Calcium 9.7 mg/dL (8.5-10.1); Chloride 100 mmol/L (98-107); Estimated GFR 76.92 (mL/min/1.73m2); Glucose 107 mg/dL (74-106); Sodium 139 mmol/L (136-145); Total Protein 7.4 g/dL (6.4-8.2)
[2024-11-06] MEDS: Pantoprazole 40 MG TABCR PO (07:15)
[2024-11-06 08:23] VITALS: BP 130/82; PULSE 79; RESP 18; TEMP 36.2; O2SAT 98
--- NOTE | 2024-11-06 08:38 | PT.INIE ---
PT Notes Visit Reasons: weakness, hypomagnesemia, prolonged QTc Physical Therapy Inpatient Initial Evaluation Date: 11/06/2024 Referring Doctor: Dr. Roberto PT Orders: PT CONSULT: PT evaluation and treatment Precautions: Standard Patient Profile/Admitting Diagnosis: Patient is 54-year-old female presented to ED with left flank pain, malaise. In the ED she had CT LS spine that did show left foramenal stenosis on L4/5 and bilateral L5-S1 but no central canal stenosis. Pt diagnosed with Hypomagnesemia and admitted for cardiac monitoring. 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 Patient drives patient independent ambulation. Patient attends outpatient PT [address] [facility] Equipment Owned/DME: None Subjective: Patient reports she is feeling very well and was unaware she had low magnesium levels prior to this hospitalization. She reports being very active and enjoys attending physical therapy at [facility]. Patient reports being very active. Patient reports she has no vision in her left eye due to central retinal vein occlusion Which she has compensated for. Objective: [] General Observation: Young female semireclined in bed using her phone IV access left upper extremity. Mental Status: Alert and oriented x 4, able to follow instructions, cooperative, agreeable to participate in eval Pain: Right calf cramp 1/10, low back pain chronic 2?3/10 ROM: [] Right Upper Extremity: WNL Left Upper Extremity: WNL Right Lower Extremity: WFL dorsiflexion to 10 degrees Left Lower Extremity: WFL Strength: [] Right Upper Extremity: 5/5 Left Upper Extremity: 5/5 Right Lower Extremity: Grossly 4/5 Left Lower Extremity: 4/5 Sensation: Intact Bed Mobility/Transfers: [] Supine to sit independent Sit to stand independent Stand to sit independent Bed to chair independent Gait: Independent ambulation without assistive device 300 feet level surfaces including turns narrow spaces and obstacle management. Stairs independent with 1 rail reciprocal pattern 12 steps Balance: [] Static Sitting: Normal Dynamic Sitting: Normal normal Static Standing: Normal Dynamic Standing: Normal Special Tests: [] Mobility Limitations Standardized Measure [] [facility] 6 clicks Basic Mobility Inpatient Short Form: [] Raw Score: 24 CMS Score: 0% Informed Consent/Education: Patient instructed in purpose of PT consult. Assessment: Patient is a 54-year-old female who presents with report of right calf pain/intermittent cramping along lateral head of [facility]. Patient demonstrates independence with bed mobility, transfers, ambulation without assistive device and stairs. Patient notes she did recently purchase new shoes that have a rocker-bottom she noticed the pain in her calf after started with wearing the shoes. Patient noted with limited right dorsiflexion and instructed in calf stretches. Patient demonstrates ability to perform functional tasks including bed making item retrieval from floor without upper extremity support and transport of items within the room independently with steady gait no loss of balance. Patient will discharge to home when medically appropriate and resume outpatient PT at [facility]. Patient instructed to notify PT at [facility] of this right calf discomfort to ensure carryover to her program. Patient is assessed as a low complexity based on the following: History: 54-year-old female with impairment level findings, functional limitations, and past medical history as indicated above Examination: Demonstrable impairment in strength, balance, and mobility level with underlying impairments and functional limitations as documented above Presentation: Stable Decision Making: Low Goals: N/A. PT evaluation and 1-2 treatment sessions only for functional mobility training using recommended AD and for HEP instruction. Plan of Care/Treatment Plan: N/A. PT evaluation and 1-2 treatment session only for functional mobility training using recommended AD and for HEP instruction. DISCHARGE RECOMMENDATIONS: Home with return to outpatient PT at [facility] TREATMENT CODE/TIME:[id number]/ [id number] Thank you for the opportunity to participate in the care of this patient. Nancy Martinez, PT [facility]
[2024-11-06] MEDS: Enoxaparin 40 MG/0.4 ML SYR SC (08:48)
[2024-11-06] MEDS: Hydroxychloroquine 200 MG TAB PO (08:48)
[2024-11-06] MEDS: Magnesium Gluconate 500 MG TAB PO (08:48)
[2024-11-06] MEDS: Aspirin E.C. 81 MG TABEC PO (08:48)
[2024-11-06] MEDS: Normal Saline Flush 10 ML SYR IVP (08:49)
[2024-11-06] MEDS: Escitalopram 20 MG TAB PO (08:49)
[2024-11-06] MEDS: Irbesartan 75 MG TAB 300 MG PO (08:49)
[2024-11-06] MEDS: Baclofen 10 MG TAB PO (08:49)
[2024-11-06] MEDS: aMILoride HCL 5 MG TAB PO (08:50)
[2024-11-06 10:13] LABS: Magnesium 1.5 mg/dL (1.8-2.4)
--- NOTE | 2024-11-06 12:40 | PDOC.CMDIS ---
Date of service: 11/06/24 Time of Service: 12:41 LACE Index Scoring Tool Questions: Length of Stay (in days): 2 Was the patient admitted via the E.D.?: Yes E.D. Visits: 1 Answers: Total Score: 6 Risk of Readmission: Low Risk Care Management Discharge Plan Reason for Hospitalization: Weakness, hypomagnesemia, prolonged QTc Discharge Plan: Francesca will be discharged home today with a resumption of outpatient PT. She will follow up with her community providers and continue per her discharge plan of care. She will transport herself home via private vehicle. Patient/Family Education Needs: Review of discharge instructions, activity, limitations, and plan of care. Discuss Ask Me Three. Services Needed at Discharge: Outpatient Therapy SDOH Health Related Social Needs: No Data to Display
--- NOTE | 2024-11-15 18:15 | DSE_ITS ---
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: Status: Acute (4) Hypokalemia: Status: Resolved (5) Hypertension: Status: Chronic (6) GERD (gastroesophageal reflux disease): Status: Chronic (7) Mixed connective tissue disease: (8) DVT prophylaxis: Status: Resolved (9) Calf pain: Status: Resolved Discharge Plan Disposition Patient Disposition: Home Condition: Stable Discharge Details Reason For Visit: weakness, hypomagnesemia, prolonged QTc Admit Date/Time: 11/04/24 18:05 Admit Provider: Dinesh Talavera Attending Provider: Dinesh Talavera Primary Care Provider: Jenny Winston Hospital Course Hospital Course: Patient was admitted on 11/05/2024 for hypomagnesemia. At that time she was also complaining of weakness. Over the next few days she improved in regards to her symptomology to the point on the first she has to be discharged home. I will send the patient home with with a prescription for magnesium replacement as well as recommendations to hold her diuretic as this can cause both hypomagnesemia and hypokalemia. At the time of discharge her blood pressure was within normal limits. Patient voiced understanding. She be discharged in good health. Resume outpatient therapy. Pt's lasix and chlorthiaodine will be held 2/2 electrolyte abnormalities. Prescription for amiloride sent to pharmacy. Recommend repeat cmp in 3-5 days to ensure electrolyte normality History of Present Illness History of Present Illness Chief Complaint: weakness, flank pain Narrative: 54 yo F with history of ocular CVA with left vision loss, mixed connective tissue disease, IBS, chronic low back pain s/p L4-5 lamenectomy and fusion and sacroiliitis, HTN, BMI 38, nephrolithiasis, GERD on PPI, migraines, hypothyroidism, and chronic hypomagesemia who presented to the ED today with g eneral malaise and four days of worsening of pain in her left flank on top of her chronic back pain. She had noticed more urinary dribbling, has had history of incontinence related to her back that has come and gone . 4 days prior to admission, she also had stool incontinence, but has has normal bowel control since then. Back pain is throbbing, left lower to mid back. She has a history of UTIs complicated by stones as above. In addition to her pain she feels generally weak when she tries to walk, but no focal weakness. In the ED she had CT LS spine that did show left foramenal stenosis on L4/5 and bilateral L5-S1 but no central canal stenosis. CT A/P showed non-obstructing stones on left but no other significant pathology and urine was bland. Her labs were significant for magnesium of 1.1. Her QTc on monitor is alarming at 480s. ED clinician offered admission for cardiac monitoring given severe hypomagnesemia and weakness. She has had chronic low mag in the past. Takes magnesium 500mg BID from [employer]. She hasn't changed medications recently, other than cutting her gabapentin to 1 tablet per day because it doesn't work great and makes her legs swelling worse. Assessment and Plan Assessment and plan (1) Hypomagnesemia: Status: Acute Assessment and plan: Given severe hypomagnesemia with increased weakness and multiple QTc prolonging agents with QTc currently long on the monitor, reasonable to admit to observation for cardiac monitoring while we replace the Mg. Given 4g and magnesium up to 1.[address] this. Will give another 4g and check in AM. Continue oral replacement. PPI likely contributing, but she will get symtpoms if we just stop this. (2) Chronic low back pain: Status: Chronic Assessment and plan: Complex history of low back pain with mulitple surgeries, seeing pain management. History of intermittent incontinence is concerning, but CT today reassuring, and this has come/gone in the past. This is not acute cauda equina COntinue chornic baclofen, lower dose of gabapentin she is taking. Can use opioids or ketoralac if severe. 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 Low mag contributing. Adding amiloride. (5) Hypertension: Status: Chronic Assessment and plan: BP above goal but she is in pain. K+ sparing diuretic might help this, try cuttling chlorthalidone and starting amilioride. (6) GERD (gastroesophageal reflux disease): Status: Chronic Assessment and plan: On chornic high dose PPI, continue. (7) Mixed connective tissue disease: Assessment and plan: on hydroxychloroquine, continue (8) DVT prophylaxis: Status: Acute Assessment and plan: enoxaparin Home Meds and New Rx's Prescriptions: New amiloride 5 mg Tablet 5 mg PO DAILY 30 Days Qty: 30 0RF magnesium oxide 400 mg magnesium capsule 400 mg PO BID 30 Days Qty: 60 0RF Continued Repatha SureClick 140 mg/mL pen injector 140 mg subcut Q2W Ubrelvy 100 mg tablet 100 mg PO ONCE PRN Rx Instructions: take 1 tab q2hr x2 in 24 hr as needed for migraines baclofen 10 mg granules in packet 10 mg PO TID escitalopram oxalate [Lexapro] 20 mg tablet 20 mg PO DAILY gabapentin 300 mg tablet extended release 24 hr 600 mg PO BID dexlansoprazole 60 mg capsule,biphase delayed releas 60 mg PO DAILY irbesartan 300 mg tablet 300 mg PO DAILY epinephrine [Auvi-Q] 0.3 mg/0.3 mL auto-injector 0.3 ml subcut Q5-15M PRN Rx Instructions: do not exceed 2 doses per episode hydroxychloroquine 200 mg tablet 200 mg PO DAILY potassium 20 mg tablet,chewable 20 mg PO DAILY levothyroxine [Euthyrox] 112 mcg tablet 112 mcg PO DAILY aspirin [Adult Aspirin Regimen] 81 mg tablet,delayed release (DR/EC) 81 mg PO DAILY Discontinued furosemide 40 mg tablet 40 mg PO DAILY chlorthalidone 25 mg tablet 25 mg PO DAILY No Action Trulance 3 mg tablet 3 mg PO DAILY Discharge Instructions Stand Alone Forms: Nursing Discharge Form Referrals: Jenny Winston MD [Primary Care Provider] - (follow up with PCP in 5-7 days Recommend repeat CMP in 3-5 days to check for potassium and magnesium levels) Activity:: Activity as Tolerated Equipment/Supplies:: No Equipment Needed Diet:: As Tolerated Discharge Orders Discharge Orders: Discharge Order (Routine); Ordered 11/06/24 Ordered By: Moncho Roberto Discharge Data Discharge Date/Time-TO BE ENTERED AT DEPARTURE: 11/06/24 12:41 DS: Summary Quality:[facility] Health Related Social Needs: No Data to Display DS: Data Vitals/I&O Vitals and I&O: Vital Signs Temperature 36.2 C L 11/06/24 08:23 Temperature Source Temporal Artery Scan 11/06/24 08:23 Pulse 79 11/06/24 08:23 Pulse Rhythm Regular 11/04/24 18:27 Pulse 67 11/04/24 17:31 Respiratory Rate 18 11/06/24 08:23 Respiratory Effort Normal, Non-Labored 11/04/24 18:27 Respiratory Depth Normal 11/04/24 18:27 Respiratory Pattern Normal 11/04/24 18:27 Blood Pressure 130/82 11/06/24 08:23 Blood Pressure Mean 98 11/06/24 08:23 Pulse Oximetry 98 11/06/24 08:23 Oxygen Delivery Method Room Air 11/06/24 08:23 Oxygen Flow Rate 0 11/06/24 08:23 Pain Level 0 11/06/24 08:23 PFSH All Active Problems (Updated 11/07/24 @ 00:03 by SUJIT ELIZALDE) GERD (gastroesophageal reflux disease) (Chronic) Hyperlipemia (Acute) 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
--- NOTE | 2024-11-15 18:17 | W.PM.DS.N ---
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: Status: Acute (4) Hypokalemia: Status: Resolved (5) Hypertension: Status: Chronic (6) GERD (gastroesophageal reflux disease): Status: Chronic (7) Mixed connective tissue disease: (8) DVT prophylaxis: Status: Resolved (9) Calf pain: Status: Resolved Discharge Plan Disposition Patient Disposition: Home Condition: Stable Discharge Details Reason For Visit: weakness, hypomagnesemia, prolonged QTc Admit Date/Time: 11/04/24 18:05 Admit Provider: Dinesh Talavera Attending Provider: Dinesh Talavera Primary Care Provider: Jenny Winston Hospital Course Hospital Course: Patient was admitted on 11/05/2024 for hypomagnesemia. At that time she was also complaining of weakness. Over the next few days she improved in regards to her symptomology to the point on the first she has to be discharged home. I will send the patient home with with a prescription for magnesium replacement as well as recommendations to hold her diuretic as this can cause both hypomagnesemia and hypokalemia. At the time of discharge her blood pressure was within normal limits. Patient voiced understanding. She be discharged in good health. Resume outpatient therapy. Pt's lasix and chlorthiaodine will be held 2/2 electrolyte abnormalities. Prescription for amiloride sent to pharmacy. Recommend repeat cmp in 3-5 days to ensure electrolyte normality History of Present Illness History of Present Illness Chief Complaint: weakness, flank pain Narrative: 54 yo F with history of ocular CVA with left vision loss, mixed connective tissue disease, IBS, chronic low back pain s/p L4-5 lamenectomy and fusion and sacroiliitis, HTN, BMI 38, nephrolithiasis, GERD on PPI, migraines, hypothyroidism, and chronic hypomagesemia who presented to the ED today with general malaise and four days of worsening of pain in her left flank on top of her chronic back pain. She had noticed more urinary dribbling, has had history of incontinence related to her back that has come and gone . 4 days prior to admission, she also had stool incontinence, but has has normal bowel control since then. Back pain is throbbing, left lower to mid back. She has a history of UTIs complicated by stones as above. In addition to her pain she feels generally weak when she tries to walk, but no focal weakness. In the ED she had CT LS spine that did show left foramenal stenosis on L4/5 and bilateral L5-S1 but no central canal stenosis. CT A/P showed non-obstructing stones on left but no other significant pathology and urine was bland. Her labs were significant for magnesium of 1.1. Her QTc on monitor is alarming at 480s. ED clinician offered admission for cardiac monitoring given severe hypomagnesemia and weakness. She has had chronic low mag in the past. Takes magnesium 500mg BID from [employer]. She hasn't changed medications recently, other than cutting her gabapentin to 1 tablet per day because it doesn't work great and makes her legs swelling worse. Assessment and Plan Assessment and plan (1) Hypomagnesemia: Status: Acute Assessment and plan: Given severe hypomagnesemia with increased weakness and multiple QTc prolonging agents with QTc currently long on the monitor, reasonable to admit to observation for cardiac monitoring while we replace the Mg. Given 4g and magnesium up to 1.3 3/[address] through this. Will give another 4g and check in AM. Continue oral replacement. PPI likely contributing, but she will get symtpoms if we just stop this. (2) Chronic low back pain: Status: Chronic Assessment and plan: Complex history of low back pain with mulitple surgeries, seeing pain management. History of intermittent incontinence is concerning, but CT today reassuring, and this has come/gone in the past. This is not acute cauda equina COntinue chornic baclofen, lower dose of gabapentin she is taking. Can use opioids or ketoralac if severe. 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 Low mag contributing. Adding amiloride. (5) Hypertension: Status: Chronic Assessment and plan: BP above goal but she is in pain. K+ sparing diuretic might help this, try cuttling chlorthalidone and starting amilioride. (6) GERD (gastroesophageal reflux disease): Status: Chronic Assessment and plan: On chornic high dose PPI, continue. (7) Mixed connective tissue disease: Assessment and plan: on hydroxychloroquine, continue (8) DVT prophylaxis: Status: Acute Assessment and plan: enoxaparin Home Meds and New Rx's Prescriptions: New amiloride 5 mg Tablet 5 mg PO DAILY 30 Days Qty: 30 0RF magnesium oxide 400 mg magnesium capsule 400 mg PO BID 30 Days Qty: 60 0RF Continued Repatha [employer] 140 mg/mL pen injector 140 mg subcut Q2W Ubrelvy 100 mg tablet 100 mg PO ONCE PRN Rx Instructions: take 1 tab q2hr x2 in 24 hr as needed for migraines baclofen 10 mg granules in packet 10 mg PO TID escitalopram oxalate [Lexapro] 20 mg tablet 20 mg PO DAILY gabapentin 300 mg tablet extended release 24 hr 600 mg PO BID dexlansoprazole 60 mg capsule,biphase delayed releas 60 mg PO DAILY irbesartan 300 mg tablet 300 mg PO DAILY epinephrine [Auvi-Q] 0.3 mg/0.3 mL auto-injector 0.3 ml subcut Q5-15M PRN Rx Instructions: do not exceed 2 doses per episode hydroxychloroquine 200 mg tablet 200 mg PO DAILY potassium 20 mg tablet,chewable 20 mg PO DAILY levothyroxine [Euthyrox] 112 mcg tablet 112 mcg PO DAILY aspirin [Adult Aspirin Regimen] 81 mg tablet,delayed release (DR/EC) 81 mg PO DAILY Discontinued furosemide 40 mg tablet 40 mg PO DAILY chlorthalidone 25 mg tablet 25 mg PO DAILY No Action Trulance 3 mg tablet 3 mg PO DAILY Discharge Instructions Stand Alone Forms: Nursing Discharge Form Referrals: Jenny Winston MD [Primary Care Provider] - (follow up with PCP in 5-7 days Recommend repeat CMP in 3-5 days to check for potassium and magnesium levels) Activity:: Activity as Tolerated Equipment/Supplies:: No Equipment Needed Diet:: As Tolerated Discharge Orders Discharge Orders: Discharge Order (Routine); Ordered 11/06/24 Ordered By: Moncho Roberto Discharge Data Discharge Date/Time-TO BE ENTERED AT DEPARTURE: 11/06/24 12:41 DS: Summary Time Spent with Patient providing and/or coordinating discharge services: Less than 30 minutes Specific discharge activities: Patient was admitted on 11/05/2024 for hypomagnesemia. At that time she was also complaining of weakness. Over the next few days she improved in regards to her symptomology to the point on the first she has to be discharged home. I will send the patient home with with a prescription for magnesium replacement as well as recommendations to hold her diuretic as this can cause both hypomagnesemia and hypokalemia. At the time of discharge her blood pressure was within normal limits. Patient voiced understanding. She be discharged in good health. Resume outpatient therapy. Pt's lasix and chlorthiaodine will be held 2/2 electrolyte abnormalities. Prescription for amiloride sent to pharmacy. Recommend repeat cmp in 3-5 days to ensure electrolyte normality Status at Discharge Functional status at discharge: independent ambulation Overall status at discharge: patient is back to baseline Mental Status: mental status grossly normal Speech and Movement: speech and movement normal Mood: congruent mood Affect: normal affect Quality:SDOH Health Related Social Needs: No Data to Display Exam Narrative Exam Narrative: General Appearance: Normal. Patient is alert and oriented, no acute distress. Easily conversational Vital signs: Within normal limits. No tachycardia, tachypnea, hypoxia, or fever noted. HEENT: Mucous membranes Cardiovascular: Normal heart sounds, regular rate and rhythm. Gastrointestinal: Abdomen soft, nondistended, nontender to palpation with normoactive bowel sounds. No CVA tenderness. Skin: Warm and dry, no rash. Psychiatric: Normal. Psych Mental Status: mental status grossly normal Speech and Movement: speech and movement normal Mood: congruent mood Affect: normal affect DS: Data Vitals/I&O Vitals and I&O: Vital Signs Temperature 36.2 C L 11/06/24 08:23 Temperature Source Temporal Artery Scan 11/06/24 08:23 Pulse 79 11/06/24 08:23 Pulse Rhythm Regular 11/04/24 18:27 Pulse 67 11/04/24 17:31 Respiratory Rate 18 11/06/24 08:23 Respiratory Effort Normal, Non-Labored 11/04/24 18:27 Respiratory Depth Normal 11/04/24 18:27 Respiratory Pattern Normal 11/04/24 18:27 Blood Pressure 130/82 11/06/24 08:23 Blood Pressure Mean 98 11/06/24 08:23 Pulse Oximetry 98 11/06/24 08:23 Oxygen Delivery Method Room Air 11/06/24 08:23 Oxygen Flow Rate 0 11/06/24 08:23 Pain Level 0 11/06/24 08:23 PFSH All Active Problems (Updated 11/07/24 @ 00:03 by SUJIT ELIZALDE) GERD (gastroesophageal reflux disease) (Chronic) Hyperlipemia (Acute) 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 (Acute) Hypertension (Chronic) Chronic low back pain (Chronic) Hypomagnesemia (Acute) Medical History Depression Nephrolithiasis Migraine IBS (irritable bowel syndrome) Mixed connective tissue disease Obesity, Class II, BMI 35-39.9 Surgical History S/P hysterectomy S/P lumbar laminectomy S/P lumbar fusion Social History Smoking/Tobacco Use Status: Never Smoking risk assessment performed?: Yes Alcohol Intake: never Drug use: Never Housing: house Do you feel safe at home: Yes Do you feel safe in your relationship?: Yes Additional Social history: Lives with sister in [facility]. 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 Time Spent with Patient Time Spent with Patient: <45 minutes Time was spent: preparing to see the patient(eg.review tests), obtaining and/or reviewing separately otained hiistory, ordering medications,tests, procedures, referring, communicating with other health landcare facilitator, indepentently interpreting results, counseling the patient and care coordination
== END 2024-11-06 12:41 | disposition home or self-care (01) ==
LOC: ER 16:45 → MS 18:56
PROVIDERS: Admitting Provider Family Medicine; Emergency Provider Nurse Practitioner Family; PCP Pediatrics; Responsible Provider Hospitalist; Visit Provider Family Medicine
DX: E83.42 Hypomagnesemia (principal); M54.41 Lumbago with sciatica, right side; M54.42 Lumbago with sciatica, left side; G89.29 Other chronic pain; I10 Essential (primary) hypertension; E87.6 Hypokalemia; M35.1 Other overlap syndromes; K21.9 Gastro-esophageal reflux disease without esophagitis; H34.8122 Central retinal vein occlusion, left eye, stable; M48.07 Spinal stenosis, lumbosacral region; N20.0 Calculus of kidney; K76.0 Fatty (change of) liver, not elsewhere classified; Z79.82 Long term (current) use of aspirin; Z79.899 Other long term (current) drug therapy; Z87.440 Personal history of urinary (tract) infections; R35.0 Frequency of micturition; R15.9 Full incontinence of feces; R94.31 Abnormal electrocardiogram [ECG] [EKG]; K58.9 Irritable bowel syndrome, unspecified; Z98.1 Arthrodesis status; G43.909 Migraine, unspecified, not intractable, without status migrainosus; E03.9 Hypothyroidism, unspecified; M62.81 Muscle weakness (generalized); F32.A Depression, unspecified; E66.812 Obesity, class 2; M79.661 Pain in right lower leg
CPT/HCPCS: 00123; 36415; 80048; 80053; 83690; 93005; 96365; 96366; 96372; 97161; 99285; J1650; 74177; 81003; 82728; 83735; 84443; 85025; 85379; 93010; 99223; 99231; J3475; J3490

== ENCOUNTER 2024-11-20 17:33 | Emergency (ER) | payer MEDICARE, MEDICAID, SELFPAY ==
[2024-11-20 17:35] VITALS: BP 147/87; PULSE 94; RESP 18; TEMP 36.5; O2SAT 98
--- NOTE | 2024-11-20 17:45 | DI.CT_ITS ---
Exam(s) CT ABDOMEN PELVIS W EXAM: CT ABDOMEN PELVIS W CLINICAL HISTORY: abdominal pain and distention TECHNIQUE: Imaging Protocol: Axial computed tomography images with coronal and sagittal reformatted images were created and reviewed. CONTRAST MATERIAL: Intravenous: Omnipaque 350 Contrast volume:100 mL Oral: No COMPARISON: CT CT ABDOMEN PELVIS W from 11/04/2024 FINDINGS: ABDOMEN: Lung Bases: The patient has bilateral breast implants which are incompletely imaged on this examination. Liver: There is diffuse decreased attenuation of the liver consistent with fatty infiltration. No measurable mass. Portal, Superior Mesenteric, and Splenic Veins: Unremarkable. Gallbladder and Biliary Tract: Status post cholecystectomy. No biliary ductal dilatation. Pancreas: Normal density, no abnormal calcifications or inflammatory process. Spleen: Normal. Adrenals: No masses seen. Kidneys: Normal size, contour and axis. There is a 6 mm nonobstructing stone in the superior pole of the left kidney. There is a 4 mm nonobstructing stone in the lower pole of the left kidney. There is no obstructive uropathy. No masses seen. Abdominal Aorta: Abdominal portion non-dilated. Bowel: No obstruction or bowel wall thickening. Appendix is unremarkable. There is fluid seen in small and large bowel loops which can be seen with a diarrheal illness. Peritoneal Cavity: No ascites, collection or mesenteric inflammatory response. No free air. Lymph Nodes: Within normal limits. Bones: Within normal limits for the patient's age. There is an intervertebral disc device at L4-5. Soft Tissues: Unremarkable. PELVIS: Bladder: The urinary bladder is incompletely distended limiting evaluation. Reproductive Organs: The patient is status post hysterectomy. Lymph Nodes: Within normal limits. Bones: Within normal limits for the patient's age. IMPRESSION: 1. Left nephrolithiasis. No evidence of obstructive uropathy. 2. Fluid filled loops of small and large bowel which can be seen with a diarrheal illness. 3. The preliminary [facility] report was reviewed. RADIATION DOSE DELIVERED: 706.14mGy.cm Total DLP DATA REPOSITORY: All CT scans at this facility are submitted to the National Radiology Data Registry (NRDR) Dose Index Registry (DIR) with the [employer] ([employer]). RADIATION OPTIMIZATION: All CT scans at this facility use at least one of these dose optimization techniques: automated exposure control; mA and/or kV adjustment per patient size (includes targeted exams where dose is matched to clinical indication); or iterative reconstruction.
--- NOTE | 2024-11-20 17:51 | W.ED.GENAD ---
Discharge Plan Disposition Patient Disposition: Home Condition: Stable Discharge Details Clinical Impression: Abdominal pain Primary Care Provider: Jenny Winston ED Provider: Rancho Mcmullen Home Meds and New Rx's Prescriptions: Continued bupropion HCl [Wellbutrin XL] 150 mg tablet extended release 24 hr 150 mg PO DAILY Repatha SureClick 140 mg/mL pen injector 140 mg subcut Q2W Ubrelvy 100 mg tablet 100 mg PO ONCE PRN Rx Instructions: take 1 tab q2hr x2 in 24 hr as needed for migraines baclofen 10 mg granules in packet 10 mg PO TID gabapentin 300 mg tablet extended release 24 hr 600 mg PO BID dexlansoprazole 60 mg capsule,biphase delayed releas 60 mg PO DAILY irbesartan 300 mg tablet 300 mg PO DAILY epinephrine [Auvi-Q] 0.3 mg/0.3 mL auto-injector 0.3 ml subcut Q5-15M PRN Rx Instructions: do not exceed 2 doses per episode Trulance 3 mg tablet 3 mg PO DAILY hydroxychloroquine 200 mg tablet 200 mg PO DAILY levothyroxine [Euthyrox] 112 mcg tablet 112 mcg PO DAILY aspirin [Adult Aspirin Regimen] 81 mg tablet,delayed release (DR/EC) 81 mg PO DAILY magnesium oxide 400 mg magnesium capsule 400 mg PO BID 30 Days Qty: 60 0RF Discontinued escitalopram oxalate [Lexapro] 20 mg tablet 20 mg PO DAILY potassium 20 mg tablet,chewable 20 mg PO DAILY amiloride 5 mg Tablet 5 mg PO DAILY 30 Days Qty: 30 0RF Discharge Instructions Additional Instructions: Your lab work and CAT scan did not show any emergent findings. You appear to likely be developing a gastroenteritis which is usually self-limiting. If you are not feeling this week follow-up with your primary care provider. If you feel significant more ill return to emergency department for reevaluation. HPI General Mode of arrival: ambulatory. Date/Time Provider Initiated Documentation: 11/20/24 17:36. Limitations to Documentation: no limitations. Information obtained by: patient. History of Present Illness 54 year old F presents to the emergency department with the chief complaint of abdominal pain , described as moderate, Quality is described as stabbing and aching, and is localized to the abdomen. Patient reports no radiation. Patient started experiencing this day(s) (1) and it has been constant. No relieving factors improve symptom(s), No exacerbating factors reported . Patient notes no other symptoms.. Patient did receive the following treatments prior to arrival, none Related Data Home Medications ?Medication ?Instructions ?Recorded ?Confirmed aspirin 81 mg tablet,delayed 81 mg PO DAILY 11/04/24 11/20/24 release (Adult Aspirin Regimen) baclofen 10 mg oral granules in 10 mg PO TID 11/04/24 11/20/24 packet dexlansoprazole 60 mg 60 mg PO DAILY 11/04/24 11/20/24 capsule,biphase delayed release epinephrine 0.3 mg/0.3 mL 0.3 ml subcut Q5-15M PRN 11/04/24 11/20/24 injection, auto-injector (Auvi-Q) evolocumab 140 mg/mL subcutaneous 140 mg subcut Q2W 11/04/24 11/20/24 pen injector (Repatha SureClick) gabapentin 300 mg tablet,extended 600 mg PO BID 11/04/24 11/20/24 release 24 hr hydroxychloroquine 200 mg tablet 200 mg PO DAILY 11/04/24 11/20/24 irbesartan 300 mg tablet 300 mg PO DAILY 11/04/24 11/20/24 levothyroxine 112 mcg tablet 112 mcg PO DAILY 11/04/24 11/20/24 (Euthyrox) plecanatide 3 mg tablet (Trulance) 3 mg PO DAILY 11/04/24 11/20/24 ubrogepant 100 mg tablet (Ubrelvy) 100 mg PO ONCE PRN 11/04/24 11/20/24 magnesium oxide 400 mg PO BID 30 days #60 caps 11/06/24 11/20/24 bupropion HCl 150 mg 24 hr tablet, 150 mg PO DAILY 11/20/24 11/20/24 extended release (Wellbutrin XL) Previous Rx's ?Medication ?Instructions ?Recorded magnesium oxide 400 mg PO BID 30 days #60 caps 11/06/24 Allergies Allergy/AdvReac Type Severity Reaction Status Date / Time nitrofurantoin Allergy Severe Anaphylaxis Verified 11/20/24 17:41 Tetracyclines Allergy Severe Anaphylaxis Verified 11/20/24 17:41 amoxicillin Allergy Mild Hives Verified 11/20/24 17:41 atorvastatin Allergy Mild rash Verified 11/20/24 17:41 azithromycin Allergy Mild hives Verified 11/20/24 17:41 morphine Allergy Mild Hives Verified 11/20/24 17:41 sulfamethoxazole (From Allergy Mild Hives Verified 11/20/24 17:41 Bactrim) trimethoprim (From Bactrim) Allergy Mild Hives Verified 11/20/24 17:41 General Stated Complaint: Abd Prob LINA: 3 Review of Systems All systems reviewed & are unremarkable except as noted in HPI and below Constitutional Constitutional: Denies chills, Denies fever(s) and Denies weakness Cardiovascular Cardiovascular: Denies chest pain and Denies dyspnea Respiratory Respiratory: Denies cough and Denies dyspnea Gastrointestinal Gastrointestinal: Reports abdominal pain, Reports nausea and Denies vomiting Neurologic Neurologic: Denies weakness Exam Const General: no acute distress Orientation: alert HENMT Head: normal to inspection Ears: external ears normal General nose exam: external nose normal Mouth: moist mucous membranes Eyes General: appearance normal, both eyes and all related structures Neck Neck: normal visual inspection Resp Effort & Inspection: normal respiratory effort and able to speak in complete sentences Cardio Rate: regular rate GI Palpation: not firm, no guarding and tender Skin General skin exam: no rashes or lesions noted Neuro General: patient alert and patient oriented x3 Extrem General: normal to inspection Psych Mental Status: mental status grossly normal Course Vital Signs Vital signs: Vital Signs Temperature 36.5 C 11/20/24 17:35 Pulse 94 H 11/20/24 17:35 Respiratory Rate 18 11/20/24 17:35 Blood Pressure 147/87 H 11/20/24 17:35 Pulse Oximetry 98 11/20/24 17:35 Temperature 36.5 C 11/20/24 17:35 Temperature Source Oral 11/20/24 17:35 Pulse 94 H 11/20/24 17:35 Respiratory Rate 18 11/20/24 17:35 Blood Pressure 147/87 H 11/20/24 17:35 Blood Pressure Position Sitting 11/20/24 17:35 Pulse Oximetry 98 11/20/24 17:35 Pain Level 6 11/20/24 17:35 Medical Decision Making 54-year-old female who was recently admitted for hypomagnesemia comes in with 1 day of abdominal discomfort and abdominal distention. Denies any vomiting though she does have nausea. States she has had some diarrhea today. Her abdomen does feel distended and has tenderness in all quadrants without guarding or rebound. Given her complaints and exam findings we will proceed with CBC, CMP and lipase and CT abdomen pelvis to evaluate for entities such as ileus versus SBO. Patient with very mild elevation of her lipase, otherwise no significant findings on her lab work. CT shows findings consistent with likely diarrheal gastroenteritis developing. No findings to suggest SBO. Does have fatty infiltration of her liver which she states she is already aware of. She is stable and appears well. Has minimal tenderness without guarding. 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) Hypertension (Chronic) Chronic low back pain (Chronic) Hypomagnesemia (Acute) Medical History Depression Nephrolithiasis Migraine IBS (irritable bowel syndrome) Mixed connective tissue disease Obesity, Class II, BMI 35-39.9 Surgical History S/P hysterectomy S/P lumbar laminectomy S/P lumbar fusion Social History Smoking/Tobacco Use Status: Never Smoking risk assessment performed?: Yes Alcohol Intake: never Drug use: Never Substance use type: does not use Housing: house Do you feel safe at home: Yes Do you feel safe in your relationship?: Yes Additional Social history: Lives with sister in [facility]. 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
[2024-11-20] MEDS: Omnipaque 350 MG/ML 100 ML BTL IJ (17:59)
[2024-11-20] MEDS: Normal Saline - Diluent 50 ML VIAL IJ (18:00)
[2024-11-20 18:11] LABS: Abs Immature Grans 0.03 10^3/uL (0.0-0.06); Absolute Basophil Count 0.04 10^3/uL (0.0-0.2); Absolute Eosinophil Count 0.37 10^3/uL (0.0-0.7); Absolute Lymphocyte Count 4.06 10^3/uL (1.2-3.4); Absolute Monocyte Count 0.76 10^3/uL (0.1-0.8); Absolute Neutrophil Count 4.09 10^3/uL (1.2-6.7); Basophils % 0.4 %; HCT 37.5 % (36.0-46.0); HGB 12.4 g/dL (11.2-15.7); Immature Grans % 0.3 %; Lymphocytes % 43.4 %; MCH 28.8 pg (27.0-33.0); MCHC 33.1 % (32.0-36.0); MCV 87 fL (80-95); MPV 9.9 fL (8.0-11.0); Monocytes % 8.1 %; Neutrophils % 43.8 %; Platelet Count 261 10^3/uL (130-400); RDW 13.2 % (11.7-14.6); RDW-SD 41.6 fL; WBC 9.35 10^3/uL (4.4-10.8)
[2024-11-20 18:13] LABS: Bilirubin Negative (Negative); Blood Negative (Negative); Clarity Clear (Clear); Glucose Negative (Negative); Ketones Negative (Negative); Leukocyte Esterase Negative (Negative); Nitrite Negative (Negative); Urobilinogen 0.2 mg/dL (Up to 0.2); pH 5.5 (5-8)
[2024-11-20 18:42] LABS: ALT 54 U/L (14-59); AST 23 U/L (15-37); Alkaline Phosphatase 91 U/L (46-116); Anion Gap 11.6 mmol/L (3-11); BUN 17 mg/dL (7-18); Bilirubin, Direct 0.1 mg/dL (0.0-0.2); Bilirubin, Total 0.5 mg/dL (0.2-1.0); CO2 26.4 mmol/L (21.0-32.0); Chloride 104 mmol/L (98-107); Estimated GFR 67.78 (mL/min/1.73m2); Glucose 118 mg/dL (74-106); Lipase 159 U/L (<78); Magnesium 1.7 mg/dL (1.8-2.4); Potassium 3.5 mmol/L (3.5-5.1); Sodium 142 mmol/L (136-145); Total Protein 7.6 g/dL (6.4-8.2)
--- NOTE | 2024-11-20 19:20 | DI.[facility]_ITS ---
PROCEDURE INFORMATION: Exam: CT Abdomen And Pelvis With Contrast Exam date and time: 11/20/2024 6:00 PM Age: 54 years old Clinical indication: Generalized; Abdominal pain and distention TECHNIQUE: Imaging protocol: Computed tomography of the abdomen and pelvis with contrast. COMPARISON: CT ABDOMEN PELVIS W 11/04/2024 2:11 PM FINDINGS: Lungs: Lung bases clear. Liver: Probable fatty infiltration of the liver, difficult to confidently diagnose by CT imaging after administration of intravenous contrast. Gallbladder and biliary ducts: Prior cholecystectomy with postop biliary dilatation. Pancreas: Normal appearing pancreas. Spleen: Normal appearing spleen. Adrenal glands: Normal appearing adrenal glands. Kidneys and ureters: Nonobstructing left renal calculi with the largest measuring 6 mm x 4 mm. No obstructing ureteral stones, hydronephrosis, or evidence of recent stone passage. Stomach and bowel: No oral contrast. Stomach partially distended with ingested material. No small bowel dilatation to suggest obstruction. Colon completely evacuated of formed fecal material. Fluid throughout the colon in keeping with diarrhea. No evidence of diverticulitis or colitis. Appendix: Normal retrocecal appendix. Intraperitoneal space: No gross ascites or free air. Vasculature: Normal caliber abdominal aorta. Lymph nodes: No pathologically enlarged mesenteric, retroperitoneal, or pelvic sidewall lymph nodes. Urinary bladder: Urinary bladder collapsed and not well evaluated but grossly unremarkable, as seen. Reproductive: Prior hysterectomy. Ovaries not identified, obscured if present. Correlation with surgical history recommended. Bones/joints: No acute fracture seen among the bones of the abdomen or pelvis. Spinal degenerative change with marginal osteophytes and facet arthrosis at multiple levels. Apparent prior lumbar surgery for L4-L5 fusion. Soft tissues: Bilateral mammoplasty prostheses partially visualized. Tiny fat-containing ventral hernia at the umbilicus, doubtful clinical significance. Small fat containing right inguinal region hernia. IMPRESSION: 1. Fluid throughout the colon, nonspecific but commonly seen in the setting of diarrhea from any cause, including gastroenteritis. Clinical correlation is recommended. 2. Probable fatty infiltration of the liver, difficult to confidently diagnose by CT imaging after administration of intravenous contrast. Dictated and Authenticated by: Jonh Baca MD. Orderin Benedict Vickers MD
[2024-11-20 19:47] VITALS: BP 136/87; PULSE 83; RESP 18; O2SAT 98
== END 2024-11-20 19:47 | disposition home or self-care (01) ==
PROVIDERS: Emergency Provider Emergency Medicine; PCP Pediatrics
DX: R10.9 Unspecified abdominal pain (principal); R11.0 Nausea
CPT/HCPCS: 99283; 99285; 36415; 80053; 83690; 74177; 81003; 82248; 83735; 85025; J3490